=== PATIENT | male | born 2005 | race Caucasian/White ===

== ENCOUNTER → 2023-04-27 13:13 | Outpatient (CLI) | payer OTHER, SELFPAY ==
--- NOTE | 2023-04-27 13:35 | DI.MRI.S_ITS ---
PROCEDURE: MR ORBITS FACE NECK WO/W CON INDICATIONS: Sarcoma TECHNIQUE: Sagittal/axial/coronal T1 spin echo and STIR. After the administration of contrast, axial/coronal/sagittal T1 fast spin echo with fat saturation through the neck. COMPARISON: Outside Facility, RG, CT NECK WITH CONTRAST, 10/28/2022, 14:28. FINDINGS: Image quality: Excellent. Lymph nodes: No enlarged nodes are seen throughout the neck. Vessels: Visualized vasculature appears normal, with normal flow voids and enhancement. Neck spaces: The oropharynx, nasopharynx and pharynx are unremarkable, without mucosal lesions seen. Vocal cords, false vocal cords, pyriform sinuses, epiglottis, vallecula, and tongue base all appear normal. Extramucosal spaces of the neck also appear unremarkable. Under the right-sided skin marker, there is mild linear enhancing granulation tissue without suspicious component Glands: The parotid and submandibular glands appear normal. Thyroid gland unremarkable. Miscellaneous: Visualized brain and orbits appear normal. Lung apices appear clear. Superficial soft tissues appear normal. Visualized sinuses and mastoids appear clear. Bones: Marrow has normal overall signal. IMPRESSION: Mild subcutaneous enhancing scar granulation tissue without MR evidence recurrence or residual disease Approved by: Jacob Andrade M.D. on 04/27/2023 at 17:20
== END ==
PROVIDERS: PCP Family Medicine; Referring Provider Otolaryngology Pediatric Otolaryngology; Visit Provider Otolaryngology Pediatric Otolaryngology
DX: C49.9 Malignant neoplasm of connective and soft tissue, unspecified (principal)
CPT/HCPCS: 70543; A9579

== ENCOUNTER 2023-08-31 01:41 | Emergency (ER) | payer SELFPAY ==
[2023-08-31 01:49] VITALS: BP 118/78; PULSE 95; RESP 18; TEMP 36.8; O2SAT 97; BMI 20.6
--- NOTE | 2023-08-31 04:40 | ED.LOWEXIN ---
HPI - Extremity Injury (Lower) General Chief Complaint: Extremity Injury, Lower Stated Complaint: infection rt foot big toe Time Seen by Provider: 08/31/23 04:36 Source: patient Mode of arrival: Ambulatory History of Present Illness HPI Narrative: Patient is a 17-year-old male with noncontributory past medical history presenting today with right toe pain and swelling. It has been ongoing for the last few days. Unknown injury. [place] not take his shoes off very often in his having 1 spot of increasing pain. Denies fever or chills. Related Data Previous Rx's Medication Instructions Recorded hydrocodone 5 mg-acetaminophen 325 1 tab PO BID PRN pain #30 tabs 09/17/22 mg tablet meloxicam 15 mg tablet 15 mg PO DAILY #30 tabs 09/17/22 clonazepam 1 mg tablet 1 mg PO DAILY PRN anxiety #30 tabs 01/21/23 escitalopram oxalate 10 mg tablet 10 mg PO DAILY #90 tabs 01/21/23 (Lexapro) Review of Systems Review of Systems ROS Unobtainable: All systems reviewed & are unremarkable except as noted in HPI and below Patient History Medical History Insomnia Chronic anxiety Sarcoma of face Social History Smoking Status: Current every day smoker Smoking Status: Current every day smoker Substance Use Type: methamphetamine Exam Initial Vital Signs Initial Vital Signs: Vital Signs Temperature 98.2 F 08/31/23 01:49 Pulse Rate 95 H 08/31/23 01:49 Respiratory Rate 18 08/31/23 01:49 Blood Pressure 118/78 08/31/23 01:49 Pulse Oximetry 97 08/31/23 01:49 Oxygen Delivery Method Room Air 08/31/23 01:49 GENERAL: Well-appearing, well-nourished and in no acute distress. CARDIOVASCULAR: peripheral pulses in tact, cap refill <2 sec RESPIRATORY: No respiratory distress, speaks in full sentences without difficulty EXTREMITIES: Normal range of motion, no clubbing or edema. Neurovascularly intact NEUROLOGICAL: Cranial nerves II through XII grossly intact. Normal gait and speech. SKIN: Right big toe 0.25 cm x 0.25 cm swelling tenderness non erythematous Procedures Abscess I/D I&D #1: Site: foot (Big toe) Side (if applicable): right Local Anesthetic: lidocaine 1% Amount of anesthesia used (mL): 2 Technique: incised with #11 blade Amount of fluid expressed (mL): 1 Irrigation: No Course Vital Signs Vital signs: Vital Signs - 8 hr 08/31/23 01:49 Temperature 98.2 F Pulse Rate 95 H Respiratory Rate 18 Blood Pressure 118/78 Pulse Oximetry 97 Oxygen Delivery Method Room Air MDM - Extremity Injury (Lower) MDM Narrative Medical decision making narrative: Patient presents with right big toe pain progressively getting worse over the last few days. The area is very small but very hard and tender to touch. Possible foreign body versus a planter's wart. However it is extremely tender to touch. Successful I and D with gross drainage. Patient feels better. At this time area is so small and no need for antibiotics Discharge Plan Departure Patient Disposition: Home Clinical Impression: Cutaneous abscess of right foot Instructions: DI for Skin Abscess Activity Restrictions/Additional Instructions: *You have been diagnosed with skin abscess *What to do: Keep clean and dry as best you can use soap and water. May apply antibiotic ointment 1-2 times daily if needed *Continue to take medications as directed *Follow up with your primary care provider in 2-3 days or call [phone] *Return to ER if you should have increasing redness swelling pain or any new, worsening or concerning symptoms Prescriptions: No Action hydrocodone-acetaminophen 5-325 mg tablet 1 tab PO BID PRN (Reason: pain) Qty: 30 0RF meloxicam 15 mg tablet 15 mg PO DAILY Qty: 30 1RF escitalopram oxalate [Lexapro] 10 mg tablet 10 mg PO DAILY Qty: 90 1RF clonazepam 1 mg tablet 1 mg PO DAILY PRN (Reason: anxiety) Qty: 30 2RF Referrals: Juanito Aguillon DO [Primary Care Provider] - Stand Alone Forms: Patient Portal/API
[2023-08-31 05:22] VITALS: BP 133/76; PULSE 89; RESP 18; TEMP 36.6; O2SAT 98
== END 2023-08-31 05:31 | disposition home or self-care (01) ==
PROVIDERS: Emergency Provider Emergency Medicine; PCP Family Medicine
DX: L02.611 Cutaneous abscess of right foot (principal)
CPT/HCPCS: 10060; 99281; 99283

== ENCOUNTER 2023-11-27 15:34 | Emergency (ER) | payer SELFPAY ==
[2023-11-27 15:52] VITALS: BP 148/80; PULSE 130; RESP 26; TEMP 37.1; O2SAT 100; BMI 21.7
--- NOTE | 2023-11-27 16:04 | ED.GENADULT ---
HPI - General Adult General Chief complaint: Upper Respiratory Symptoms Stated complaint: sinus infection Time Seen by Provider: 11/27/23 15:57 Source: patient Mode of arrival: Ambulatory Limitations: no limitations History of Present Illness HPI narrative: Patient is a 17-year-old male who is here for what he states is a sinus infection. He states that last evening he started to get discomfort around his right eye. He has having a runny nose. He states he is having quite a bit of mucus. Also having dental pain. Has not tried anything for his symptoms. Does admit to using meth yesterday. Is having a headache as well. Related Data Previous Rx's Medication Instructions Recorded hydrocodone 5 mg-acetaminophen 325 1 tab PO BID PRN pain #30 tabs 09/17/22 mg tablet meloxicam 15 mg tablet 15 mg PO DAILY #30 tabs 09/17/22 clonazepam 1 mg tablet 1 mg PO DAILY PRN anxiety #30 tabs 01/21/23 escitalopram oxalate 10 mg tablet 10 mg PO DAILY #90 tabs 01/21/23 (Lexapro) Allergies Allergy/AdvReac Type Severity Reaction Status Date / Time No Known Drug Allergies Allergy Verified 11/27/23 15:51 Review of Systems Constitutional Constitutional: Reports system reviewed and no additional complaints, except as documented ENT Ears, Nose, Mouth, and Throat: Reports system reviewed and no additional complaints, except as documented Respiratory Respiratory: Reports system reviewed and no additional complaints, except as documented Integumentary/Breasts Skin/Breast: Reports system reviewed and no additional complaints, except as documented Patient History Medical History Insomnia Chronic anxiety Sarcoma of face Social History Smoking Status: Current every day smoker Smoking Status: Current every day smoker Substance Use Type: methamphetamine Exam Initial Vital Signs Initial Vital Signs: Vital Signs Temperature 98.7 F 11/27/23 15:52 Pulse Rate 130 H 11/27/23 15:52 Respiratory Rate 26 H 11/27/23 15:52 Blood Pressure 148/80 H 11/27/23 15:52 Pulse Oximetry 100 11/27/23 15:52 Oxygen Delivery Method Room Air 11/27/23 15:52 Const General: No ill appearing HENMT Nose: nasal discharge Face and sinus: sinuses nontender, no crepitus, no ecchymosis, no erythema and no edema Resp Effort & Inspection: normal respiratory effort Auscultation: clear to auscultation bilaterally Cardio Rate: tachycardic Rhythm: regular rhythm Skin General: no rashes or lesions noted Neuro General: patient alert and patient awake Course Orders Ordered: ED Orders 11/27/23 16:11 Respiratory Panel (Film Array) Stat Discontinued Medications Prednisone (Prednisone 20 Mg Tablet) 20 mg PO NOW ONE Stop: 11/27/23 16:04 Last Admin: 11/27/23 16:09 Dose: 20 mg Documented By: SPRING Vital Signs Vital signs: Vital Signs - 8 hr 11/27/23 15:52 Temperature 98.7 F Pulse Rate 130 H Respiratory Rate 26 H Blood Pressure 148/80 H Pulse Oximetry 100 Oxygen Delivery Method Room Air Medical Decision Making Lab Data Labs: Lab Results 11/27/23 Range/Units 16:11 Chlamy pneumoniae PCR Not detected (Not Detect) Adenovirus (PCR) Not detected (Not Detect) B.parapertussis DNA PCR Not detected (Not Detecte) Coronavirus OC43 (PCR) Not detected (Not Detect) Coronavirus HKU1 (PCR) Not detected (Not Detect) Coronavirus 229E (PCR) Not detected (Not Detect) SARS-CoV-2 (PCR) Detected H (Not Detecte) Coronavirus NL63 (PCR) Not detected (Not Detect) Human Metapneumovir PCR Not detected (Not Detect) Influenza Type A (PCR) Not detected (Not Detect) Influenza Type B (PCR) Not detected (Not Detect) M. pneumoniae (PCR) Not detected (Not Detect) Parainfluenza 1 (PCR) Not detected (Not Detect) Parainfluenza 2 (PCR) Not detected (Not Detect) Parainfluenza 3 (PCR) Not detected (Not Detect) Parainfluenza 4 (PCR) Not detected (Not Detect) RSV (PCR) Not detected (Not Detect) Entero/Rhino (PCR) Not detected (Not Detect) MDM Narrative Medical decision making narrative: Patient is COVID positive. I suspect that he has having some discomfort because of his sinus congestion. There was no indication for antibiotics. Not hypoxic. He is tachycardic however not dehydrated. No indication for admission to the hospital today. He was informed that he was COVID positive. Recommended that he take Tylenol/ibuprofen potentially some decongestants for his symptoms. He expressed understanding and agreement. Discharge Plan Departure Patient Disposition: Home Clinical Impression: COVID-19 Instructions: COVID-19 Activity Restrictions/Additional Instructions: Your positive for COVID today. Please follow all current CDC guidelines with regard to quarantine. These can be found at the CDC website. You can take Tylenol/ibuprofen for discomfort. You can also try [id number] decongestants. Contact your primary provider for follow-up. Prescriptions: No Action hydrocodone-acetaminophen 5-325 mg tablet 1 tab PO BID PRN (Reason: pain) Qty: 30 0RF meloxicam 15 mg tablet 15 mg PO DAILY Qty: 30 1RF escitalopram oxalate [Lexapro] 10 mg tablet 10 mg PO DAILY Qty: 90 1RF clonazepam 1 mg tablet 1 mg PO DAILY PRN (Reason: anxiety) Qty: 30 2RF Referrals: Juanito Aguillon DO [Primary Care Provider] - Stand Alone Forms: Patient Portal/API
[2023-11-27] MEDS: predniSONE 20 MG TABLET PO (16:09)
[2023-11-27 16:31] VITALS: BP 128/69
[2023-11-27 16:33] VITALS: PULSE 104; RESP 17; O2SAT 98
[2023-11-27 17:00] VITALS: BP 154/71; PULSE 102; RESP 16; O2SAT 96
[2023-11-27 17:30] VITALS: BP 141/68; PULSE 94; RESP 21; O2SAT 95
[2023-11-27 17:54] LABS: Adenovirus Not Detected (Not Detect); B. parapertussis Not Detected (Not Detecte); Bordetella pertussis Not Detected (Not Detect); Chlamydophila pneumoniae Not Detected (Not Detect); Coronavirus 229E Not Detected (Not Detect); Coronavirus HKU1 Not Detected (Not Detect); Coronavirus NL 63 Not Detected (Not Detect); Coronavirus OC43 Not Detected (Not Detect); Human Metapneumovirus Not Detected (Not Detect); Human Rhinovirus/Enterovirus Not Detected (Not Detect); Influenza A Not Detected (Not Detect); Influenza B Not Detected (Not Detect); Mycoplasma pneumoniae Not Detected (Not Detect); Parainfluenza Virus 1 Not Detected (Not Detect); Parainfluenza Virus 2 Not Detected (Not Detect); Parainfluenza Virus 3 Not Detected (Not Detect); Parainfluenza Virus 4 Not Detected (Not Detect); Respiratory Syncytial Virus Not Detected (Not Detect); SARS- CoV-2 Detected (Not Detecte)
[2023-11-27 18:00] VITALS: BP 145/66; PULSE 100; RESP 20; O2SAT 94
== END 2023-11-27 18:18 | disposition home or self-care (01) ==
PROVIDERS: Emergency Provider Emergency Medicine; PCP Family Medicine
DX: U07.1 COVID-19 (principal)
CPT/HCPCS: 87633; 99283

== ENCOUNTER 2024-01-02 19:47 | Emergency (ER) | payer SELFPAY ==
[2024-01-02 19:52] VITALS: BP 113/62; PULSE 128; RESP 20; TEMP 36.8; O2SAT 100; BMI 19.0
--- NOTE | 2024-01-02 20:15 | ED.GENADULT ---
HPI - General Adult General Chief complaint: Upper Respiratory Symptoms Stated complaint: sinus pain Time Seen by Provider: 01/02/24 20:05 Source: patient Mode of arrival: Ambulatory History of Present Illness HPI narrative: Patient is here for evaluation of left-sided maxillary sinus pain. It has been present for the past 2 weeks. He states the symptoms started after he was diagnosed with COVID. The symptoms that he had while he had COVID have resolved but he states he continues to have discomfort localized specifically to the left maxillary area. It does hurt to touch this area. It hurts when he bends over. He states that he does have purulent material coming from his left nostril when he blows his nose. Denies any fevers. He does have history of drug abuse. Has snorted cocaine in the past but states he does not do that anymore. He does sometimes snort methamphetamine but noted that he mostly uses his right nostril for this. Related Data Previous Rx's Medication Instructions Recorded hydrocodone 5 mg-acetaminophen 325 1 tab PO BID PRN pain #30 tabs 09/17/22 mg tablet meloxicam 15 mg tablet 15 mg PO DAILY #30 tabs 09/17/22 clonazepam 1 mg tablet 1 mg PO DAILY PRN anxiety #30 tabs 01/21/23 escitalopram oxalate 10 mg tablet 10 mg PO DAILY #90 tabs 01/21/23 (Lexapro) amoxicillin 875 mg-potassium 1 tab PO BID 5 days #10 tabs 01/02/24 clavulanate 125 mg tablet Allergies Allergy/AdvReac Type Severity Reaction Status Date / Time No Known Drug Allergies Allergy Verified 11/27/23 15:51 Review of Systems Constitutional Constitutional: Reports system reviewed and no additional complaints, except as documented ENT Ears, Nose, Mouth, and Throat: Reports system reviewed and no additional complaints, except as documented Respiratory Respiratory: Reports system reviewed and no additional complaints, except as documented Patient History Medical History Insomnia Chronic anxiety Sarcoma of face Social History Smoking Status: Current every day smoker Smoking Status: Current every day smoker alcohol intake frequency: other Substance Use Type: methamphetamine Exam Initial Vital Signs Initial Vital Signs: Vital Signs Temperature 98.2 F 01/02/24 19:52 Pulse Rate 128 H 01/02/24 19:52 Respiratory Rate 20 01/02/24 19:52 Blood Pressure 113/62 01/02/24 19:52 Pulse Oximetry 100 01/02/24 19:52 Oxygen Delivery Method Room Air 01/02/24 19:52 [facility] Head: normal to inspection and normocephalic Ears: TM's normal bilaterally Nose: septum normal, No epistaxis, No foreign body in naris and nasal discharge Face and sinus: no erythema, sinus tenderness maxillary (Left) and tenderness on the left maxilla Mouth: oral mucosae normal and moist mucous membranes Skin General: no rashes or lesions noted Course Orders Ordered: Discontinued Medications Amoxicillin/Clavulanate Potassium (Amoxicillin/Clav 875/125 Mg) 1 tab PO NOW ONE Stop: 01/02/24 20:16 Last Admin: 01/02/24 20:19 Dose: 1 tab Documented By: HARRIS Vital Signs Vital signs: Vital Signs - 8 hr 01/02/24 19:52 Temperature 98.2 F Pulse Rate 128 H Respiratory Rate 20 Blood Pressure 113/62 Pulse Oximetry 100 Oxygen Delivery Method Room Air Medical Decision Making [facility] Narrative Medical decision making narrative: Patient does have what appears to be purulent material from his left nostril. Has tenderness over the left maxillary sinus. Has discomfort with bending over over the left maxillary sinus. Given all of this his symptoms are consistent with a bacterial sinusitis. Will treat with antibiotics. He was advised to discontinue snorting the methamphetamine. We also discussed other things he could try at home to include decongestants and also saline nasal sprays. He was given return precautions. He expressed understanding and agreement. Discharge Plan Departure Patient Disposition: Home Clinical Impression: Acute bacterial sinusitis Activity Restrictions/Additional Instructions: A prescription for antibiotics was sent to [facility] in [place] per your request. Please take it as directed. I also recommend that you continue with the conservative measures such as saline nasal sprays and also decongestant such as Claritin or Zyrtec. You can purchase these [id number]. Return to the emergency department for new symptoms. Prescriptions: New amoxicillin-pot clavulanate 875-125 mg tablet 1 tab PO BID 5 Days Qty: 10 0RF No Action hydrocodone-acetaminophen 5-325 mg tablet 1 tab PO BID PRN (Reason: pain) Qty: 30 0RF meloxicam 15 mg tablet 15 mg PO DAILY Qty: 30 1RF escitalopram oxalate [Lexapro] 10 mg tablet 10 mg PO DAILY Qty: 90 1RF clonazepam 1 mg tablet 1 mg PO DAILY PRN (Reason: anxiety) Qty: 30 2RF Referrals: Juanito Aguillon DO [Primary Care Provider] - Stand Alone Forms: Patient Portal/API
[2024-01-02] MEDS: AMOXICILLIN/CLAV 875/125 MG 1 TAB PO (20:19)
== END 2024-01-02 20:26 | disposition home or self-care (01) ==
PROVIDERS: Emergency Provider Emergency Medicine; PCP Family Medicine
DX: J01.80 Other acute sinusitis (principal); Z86.16 Personal history of COVID-19
CPT/HCPCS: 99283

== ENCOUNTER 2024-01-08 08:25 | Emergency (ER) | payer SELFPAY ==
[2024-01-08 08:41] VITALS: BP 126/70; PULSE 88; RESP 18; TEMP 36.8; O2SAT 98; BMI 21.7
--- NOTE | 2024-01-08 09:08 | PC.NURSE ---
Attempted to bring pt into ED,unable to locate him in lobby
--- NOTE | 2024-01-08 09:14 | PC.NURSE ---
Attempted to bring pt into ED,unable to locate pt in lobby
[2024-01-08 10:03] LABS: Add Manual Diff / Slide Review NO; Basophils Absolute Auto 100 /uL (0-100); Basophils Percent Auto 0.7 % (0-2); Eosinophils Absolute Auto 200 /uL (0-450); Eosinophils Percent Auto 1.6 % (2-4); Hematocrit 40.2 % (41-53); Hemoglobin 13.1 g/dL (13.5-17.5); Lymphocytes Absolute Auto 1700 /uL (1100-4500); Lymphocytes Percent Auto 13.9 % (25-40); Mean Corpuscular HGB Conc 32.5 % (30-36); Mean Corpuscular Hemoglobin 27.9 PG (26-34); Mean Corpuscular Volume 85.9 fL (80-100); Monocytes Absolute Auto 1000 /uL (0-900); Monocytes Percent Auto 8.4 % (3-14); Neutrophils Absolute Auto 9400 /uL (1500-7000); Neutrophils Percent Auto 75.4 % (50-75); Platelet Count 283 X10^3/uL (150-400); Red Blood Cell Count 4.69 X10^6/uL (4.5-5.9); Red Cell Distribution Width 15.9 % (11.6-14.8); White Blood Cell Count 12.4 X10^3/uL (4.5-11.0)
[2024-01-08 10:14] LABS: Acetaminophen < 10 ug/mL (10-30); Alanine Aminotransferase 25 IU/L (<50); Albumin 4.1 g/dL (3.5-5.0); Albumin Globulin Ratio 1.1 (1.0-2.8); Alkaline Phosphatase 99 U/L (38-126); Aspartate Aminotransferase 24 IU/L (17-59); BUN Creatinine Ratio 17.8 (6-22); Bilirubin Total 0.6 mg/dL (0.2-1.3); Blood Urea Nitrogen 13 mg/dL (9-20); Calcium 9.1 mg/dL (8.4-10.2); Carbon Dioxide 30 mmol/L (22-32); Chloride 104 mmol/L (98-107); Estimated Glomerular Filt Rate > 60 mL/min (>60); Ethanol (ETOH) < 10 mg/dL; Globulin 3.6 g/dL (1.7-4.1); Glucose 62 mg/dL (70-100); HEMOLYSIS 15 (0-50); Potassium 4.1 mmol/L (3.4-5.1); Salicylate < 1.0 mg/dL (<20); Sodium 142 mmol/L (137-145); Total Protein 7.7 g/dL (6.3-8.2)
--- NOTE | 2024-01-08 10:15 | DI.CT.S_ITS ---
PROCEDURE: CT FACIAL BONES WO CON INDICATIONS: Left side pain/injury TECHNIQUE: Noncontrast 2.5 mm thick axial images acquired from the mandible through the frontal sinuses, with coronal and sagittal reformatting. For radiation dose reduction, the following was used: automated exposure control, adjustment of mA and/or kV according to patient size. COMPARISON: None. FINDINGS: Image quality: Excellent. Bones and teeth: No acute fracture can be seen. No orbital blowout fracture is seen. There is medial bowing of the left maxillary sinus, with thinning of the medial wall of the right maxillary sinus, with demineralization. Orbital melton are intact. Nasal bones and septum are intact. Chronic mild leftward nasal septal deviation can be seen. Visualized portions of the mandible demonstrate no fractures or subluxation. Zygomatic arches are intact. Pterygoid plates are intact. Visualized portions of the skull base and auditory canals are intact. Sinuses: Significant left-sided paranasal sinus opacification can be seen, with high density material filling the left maxillary sinus. There is also moderate to prominent left-sided ethmoid air cell mucosal thickening. There is demineralization of several of the left ethmoid air cell septations. There is complete opacification of the left frontal sinus. Mild mucosal thickening can be seen within the anterior left sphenoid sinus. On the right, there is mild mucosal thickening within the anterior ethmoid air cells and within the inferior medial right frontal sinus. Soft tissues: No edema, masses, or fluid collections. No enlarged lymph nodes. No soft tissue lacerations or debris. Vascular: Visualized vascular structures appear normal in the absence of contrast. Bony vascular foramina and canals are intact. IMPRESSION: No displaced acute fracture can be seen. There is complete opacification of the left maxillary sinus seen, with high-density material within it, which may be related to blood, given the history. However, this also has the appearance of chronic sinus disease affecting the left maxillary sinus, with thinning and medial bowing of the medial wall of the left maxillary sinus. Areas of bony demineralization are seen, which are consistent with chronic sinusitis. Moderate paranasal sinus disease can be seen elsewhere on the left. Mild mucosal thickening can be seen on the right. Dictated by: Monty Weston M.D. on 01/08/2024 at 10:11 Approved by: Monty Weston M.D. on 01/08/2024 at 10:16
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
[2024-01-08 10:44] LABS: Free T4, Direct Thyroxine 1.38 ng/dL (0.78-2.19)
--- NOTE | 2024-01-08 10:55 | PC.NURSE ---
Pt given food tray
[2024-01-08 10:58] LABS: Thyroid Stimulating Hormone 1.28 uIU/mL (0.47-4.68)
[2024-01-08 12:03] LABS: Appearance Urine UA CLEAR; Bilirubin Urine UA NEGATIVE (NEGATIVE); Color Urine UA YELLOW; Glucose Urine UA NEGATIVE (Negative); Ketones Urine UA TRACE (NEGATIVE); Leukocyte Esterase Urine UA NEGATIVE (NEGATIVE); Nitrite Urine UA NEGATIVE (Negative); Occult Blood Urine UA NEGATIVE (Negative); Protein Urine UA NEGATIVE (Negative); Specific Gravity Urine UA 1.025 (1.000-1.035); Urobilinogen Urine UA 0.2 E.U./dL (0.2); pH Urine UA 5.5 (4.5-8.0)
[2024-01-08 12:04] LABS: Urine Volume 10mL (spun)
[2024-01-08 12:04] LABS: Ur Creatinine Normal (Normal); Ur Specific Gravity Normal (Normal); Urine pH Normal (Normal)
[2024-01-08 12:06] LABS: UR Morphine/Opiate cutoff 300 Negative (Negative); Urine Amphetamines Positive (Negative); Urine Barbiturates Negative (Negative); Urine Benzodiazepines Negative (Negative); Urine Cocaine Negative (Negative); Urine MDMA Negative (Negative); Urine Methadone Negative (Negative); Urine Methamphetamines Positive (Negative); Urine Oxycodone Negative (Negative); Urine Phencyclidine Negative (Negative); Urine Tetrahydrocannabinol Negative (Negative); Urine Tricyclic Antidepressant Negative (Negative)
[2024-01-08 12:07] LABS: Bacteria Urine None Seen; Culture Indicated Urine Cult Not Indicated; RBC Urine None Seen (0-5/HPF); Squamous Epithelial Cell Urine None Seen (0-5/HPF); WBC Urine None Seen (0-5/HPF)
[2024-01-08 12:24] LABS: COVID19 -Nasal RAPID Negative (Negative)
[2024-01-08 12:40] VITALS: BP 117/58; PULSE 104; O2SAT 98
--- NOTE | 2024-01-08 12:51 | CM.SWNOTE ---
Addendum entered by Salvador Baugh CNA 01/08/24 12:53: ED CAD DESIGNER DRAFTER Assessment Note CAD DESIGNER DRAFTER met with 18 y.o. male patient presenting to ED with concerns of auditory hallucinations, substance use concerns, and homelessness. Upon entering the room CAD DESIGNER DRAFTER noted the pt calmly sitting in bed and appeared alert and oriented x4. Pt has a history of schizophrenia and undiagnosed bipolar disorder. Pt disclosed he last used substances 5 days ago. CAD DESIGNER DRAFTER discussed the possibility of a senior care. Pt would prefer his own space and doesn't want to sleep in a gymnasium with a bunch of mats around.. I'd rather sleep on the streets. Pt acknowledged homelessness as his primary concern and stated he slept by the [employer] across the street last night. Pt previously saw a therapist in [place] but not has seen one recently. Pt acknowledged therapy as beneficial and would like resources. Pt mentioned history of ADHD and concern for autism. Pt has been in and out of the hospital the past few days and reports not using any substance other than nicotine in the past 4 to 5 days. Pt does not want treatment. Pt has hx of treatment and detox at [facility]. Pt stated his first visit to [facility] was good but that they were aggressive last time I was there so I left. Pt was supposed to attend [address] [place] [address] in [place] as a teenager but did not end up attending. Pt would like to find employment. Pt uses public transportation and rides from friends to get around. Pt states he ahs family across [facility] but cannot stay with them unless he goes to treatment. Pt has attempted to get a hold of [facility]. Pt endorses auditory hallucinations. These hallucinations tell him to go to the hospital and to break into cars. Pt denies visual hallucinations. Pt denies SI at the moment but acknowledges a history. Pt denies HI but states that the voices are people that he knows and it gets irritating when coming down off of dope. Pt does not currently have insurance. CAD DESIGNER DRAFTER provided Pt with housing and senior care resources as well as [address] [place] bus passes. CAD DESIGNER DRAFTER discussed food stamps to which the Pt confirmed he has been to [facility] and seen someone about. CAD DESIGNER DRAFTER provided Pt with information on local [facility] office for food and health insurance needs. [facility] resources were provided to Pt along with food bank information. [facility] was called on Pt's behalf and they will reach out to him directly with additional information and the possibility of a hotel voucher for the night. It is the opinion of this CAD DESIGNER DRAFTER that Pt is safe to discharge to the community upon medical clearance. This CAD DESIGNER DRAFTER reviews the above with ED provider Dr. Garcia who indicates agreement and understanding. Plan: Pt to discharge to community upon medical clearance w/ bus passes and reosruces rppvided. MATEO Cagle, [facility] Original Note: ED CAD DESIGNER DRAFTER Assessment Note
== END 2024-01-08 12:40 | disposition home or self-care (01) ==
PROVIDERS: Emergency Provider Emergency Medicine; PCP Family Medicine
DX: R44.0 Auditory hallucinations (principal); J32.0 Chronic maxillary sinusitis; F15.10 Other stimulant abuse, uncomplicated; R51.9 Headache, unspecified; Z20.822 Contact with and (suspected) exposure to COVID-19
CPT/HCPCS: 36415; 70486; 80053; 80305; 80320; 80329; 81001; 84439; 84443; 85025; 87635; 99283; 99284; G0480

== ENCOUNTER 2024-01-13 20:53 | Emergency (ER) | payer SELFPAY ==
[2024-01-13 21:00] VITALS: BP 126/60; PULSE 103; RESP 18; TEMP 36.6; O2SAT 100; BMI 21.7
--- NOTE | 2024-01-13 21:18 | DI.RAD.S_ITS ---
PROCEDURE: XR ANKLE LT MIN 3V INDICATIONS: pain/swelling TECHNIQUE: 3 views of the ankle were acquired. COMPARISON: None. FINDINGS: Bones: No fractures or dislocations. Ankle mortise is normally aligned. No suspicious bony lesions. No osseous erosions or periosteal reaction. Soft tissues: No tibiotalar joint effusion. Achilles tendon appears normal. Mild soft tissue swelling of the left ankle and left foot. IMPRESSION: Mild soft tissue swelling of the ankle and foot without underlying osseous abnormalities. If there are persistent symptoms or clinical suspicion for pathology, then repeat radiographs or advanced imaging (CT or MRI) may be considered for further evaluation. Dictated by: Garrett Mooney M.D. on 01/13/2024 at 22:11 Approved by: Garrett Mooney M.D. on 01/13/2024 at 22:12
--- NOTE | 2024-01-13 22:04 | ED.SKABFB ---
HPI - Skin/Abscess/Foreign Bdy General Chief complaint: Skin/Abscess/Foreign Body Stated complaint: lt foot pain, possible infection Time Seen by Provider: 01/13/24 21:00 Source: patient Mode of arrival: Wheelchair Limitations: no limitations History of Present Illness HPI narrative: 18-year-old male with history schizophrenia presents for evaluation of left ankle pain and swelling. Patient denies injury, states that he walks ?a lot? every day. States that he noticed swelling 1-2 days ago and has gotten worse since onset. No medications taken prior to arrival. Related Data Previous Rx's Medication Instructions Recorded hydrocodone 5 mg-acetaminophen 325 1 tab PO BID PRN pain #30 tabs 09/17/22 mg tablet meloxicam 15 mg tablet 15 mg PO DAILY #30 tabs 09/17/22 clonazepam 1 mg tablet 1 mg PO DAILY PRN anxiety #30 tabs 01/21/23 escitalopram oxalate 10 mg tablet 10 mg PO DAILY #90 tabs 01/21/23 (Lexapro) doxycycline hyclate 100 mg capsule 100 mg PO BID #14 caps 01/13/24 Allergies Allergy/AdvReac Type Severity Reaction Status Date / Time No Known Drug Allergies Allergy Verified 11/27/23 15:51 Review of Systems Review of Systems Narrative: Negative except as noted above Patient History Medical History Insomnia Chronic anxiety Sarcoma of face Social History Smoking Status: Current every day smoker Smoking Status: Current every day smoker tobacco type: vaping alcohol intake frequency: holidays/special occasions only Substance Use Type: methamphetamine Exam Initial Vital Signs Initial Vital Signs: Vital Signs Temperature 97.8 F 01/13/24 21:00 Pulse Rate 103 H 01/13/24 21:00 Respiratory Rate 18 01/13/24 21:00 Blood Pressure 126/60 01/13/24 21:00 Pulse Oximetry 100 01/13/24 21:00 Oxygen Delivery Method Room Air 01/13/24 21:00 Const: Awake, alert, no acute distress Cardiac: regular rate, regular rhythm RESP: unlabored, clear bilaterally, no wheezing MSK: Left ankle swollen on lateral aspect, no deformity, scab noted above ankle with surrounding erythema, no fluctuance Skin: Warm, Dry, scab noted above lateral aspect of left ankle with mild surrounding erythema Neuro: AO x3, CN II-XII grossly intact, moves all extremities Course Orders Ordered: ED Orders 01/13/24 21:18 XR ankle LT min 3V Stat Discontinued Medications Doxycycline Hyclate (Doxycycline Hyclate 100 Mg Tablet) 100 mg PO NOW ONE Stop: 01/13/24 22:06 Last Admin: 01/13/24 22:16 Dose: 100 mg Documented By: OW Vital Signs Vital signs: Vital Signs - 8 hr 01/13/24 21:00 01/13/24 22:20 Temperature 97.8 F Pulse Rate 103 H 96 H Respiratory Rate 18 18 Blood Pressure 126/60 128/67 Pulse Oximetry 100 100 Oxygen Delivery Method Room Air Room Air MDM - Skin/Abscess/Foreign Bdy Differential Diagnosis Differential diagnosis: Likely abscess of skin or subcutaneous tissue, viral exanthem and dermatophytosis MDM Narrative Medical decision making narrative: Nontoxic appearing patient with left ankle pain and swelling. Cellulitic changes noted surrounding a scab that patient has on his left lateral ankle. Patient is ambulatory without difficulty. We will treat for MRSA with doxycycline. Initial dose given in the emergency department and prescription sent to pharmacy of choice. Patient counseled to elevate his legs whenever possible and to follow up with primary care physician. ED return precautions discussed at bedside. Patient expressed understanding of the plan and is in agreement at this time. All questions answered at the time of discharge. Discharge Plan Departure Patient Disposition: Home Clinical Impression: Cellulitis of left leg Instructions: DI for Cellulitis -- Adult Prescriptions: New doxycycline hyclate 100 mg capsule 100 mg PO BID Qty: 14 0RF No Action hydrocodone-acetaminophen 5-325 mg tablet 1 tab PO BID PRN (Reason: pain) Qty: 30 0RF meloxicam 15 mg tablet 15 mg PO DAILY Qty: 30 1RF escitalopram oxalate [Lexapro] 10 mg tablet 10 mg PO DAILY Qty: 90 1RF clonazepam 1 mg tablet 1 mg PO DAILY PRN (Reason: anxiety) Qty: 30 2RF Referrals: Juanito Aguillon DO [Primary Care Provider] - Stand Alone Forms: Patient Portal/API
[2024-01-13] MEDS: DOXYCYCLINE HYCLATE 100 MG TABLET PO (22:16)
[2024-01-13 22:20] VITALS: BP 128/67; PULSE 96; RESP 18; O2SAT 100
== END 2024-01-13 22:37 | disposition home or self-care (01) ==
PROVIDERS: Emergency Provider Emergency Medicine; PCP Family Medicine
DX: L03.116 Cellulitis of left lower limb (principal)
CPT/HCPCS: 73610; 99283

== ENCOUNTER 2024-11-13 16:04 | Emergency (ER) | payer OTHER, SELFPAY ==
[2024-11-13 16:21] VITALS: BP 102/61; PULSE 83; RESP 16; TEMP 35.9; O2SAT 99; BMI 20.3
--- NOTE | 2024-11-13 19:04 | PC.NURSE ---
This RN attempts to bring patient back from waiting room. Pt is not found in waiting room. security rep made aware. Will attempt to call back again in a little bit.
== END 2024-11-13 19:41 | disposition left against medical advice (07) ==
PROVIDERS: Emergency Provider Emergency Medicine; PCP Family Medicine
DX: E86.0 Dehydration (principal)
CPT/HCPCS: 99281

== ENCOUNTER 2024-12-11 15:01 | Emergency (ER) | payer OTHER, SELFPAY ==
[2024-12-11] VITALS (8 sets, daily range): BP systolic 102–127; BP diastolic 55–62; PULSE 76–112; RESP 16; TEMP 36.6; O2SAT 97–100; BMI 26.1
--- NOTE | 2024-12-11 15:44 | PC.NURSE ---
This RN contacts patient's Aunt, Isidra Morris, at patient request. Connection is poor so unable to have complete conversation. Patient made aware and would like to speak with director of social services. MATEO Veras made aware.
--- NOTE | 2024-12-11 16:06 | CM.SWNOTE ---
Addendum entered by Eda Robertson 12/11/24 17:24: Patient is unable to provide a urine sample for ED provider, per patient request to be tested for STIs and Hepatitis. Patient endorses preference to d/c. [employer] provides patient with [facility] where patient can get tested from [facility] de[facility] website. ARISTEO Weathers Addendum entered by Eda Robertson 12/11/24 16:56: Patient also reports hx of 10 drug overdoses in his life and requests narcan upon d/c. [employer] informs ED provider of this. ARISTEO Weathers Original Note: ED [employer] Assessment Note Patient is 18 y/o male who presents to ED via EMS after EMS was contacted twice due to concern for patient passing out at [facility]. Patient admits to recent Fentanyl use 30 minutes prior to arrival. In the ED patient presents endorsing concern for general work up. Per Raúl patient has hx of similar presentations at this ED and surrounding EDs. [employer] enters room to meet with patient, patient presents as A/Ox4. Patient presents as calm, polite and communicative. Patient endorses he wants to meet with [employer] to get a new phone through the state. Patient endorses he is homeless, has limited supports and has been struggling with mental illness and substance use. Patient states that last year he was in a state of psychosis and has been experiencing hallucinations unsure what is real of fake. Patient endorses he engages in substance use and spent his money on Fentanyl. Patient endorses hx of tobacco and Methamphetamine use as well. [employer] discusses [facility] inpatient options, patient endorses he is not interested in going to treatment at this time. Patient endorses hx of placement at [facility] in the last year. Patient denies SI and HI. Patient denies any recent hx of outpatient providers. [employer] offers patient with resources and provides patient with cold nursing home resources, housing, basic needs (including clothing and phone) resources and [facility] resources. [employer] offers bus passes and provides patient with 6 [employer] day passes. [employer] reviews this with ED provider, ED provider to evaluate patient. Patient to d/c to community upon medical clearance, patient to f/u with resources provided. ARISTEO Weathers
--- NOTE | 2024-12-11 17:06 | ED_ITS ---
HPI - Recheck/Abnormal Lab/Rx General Chief Complaint: Recheck/Abnormal Lab/Rx Stated Complaint: Smoked Fentanyl Time Seen by Provider: 12/11/24 16:47 Source: EMS Mode of arrival: EMS History of Present Illness HPI narrative: Patient 18-year-old male history of polysubstance abuse presenting today after being found passed out at [facility]. Admits to smoking fentanyl did not get Narcan. He has been monitored here for a couple of hours. He is homeless he is met with social work. He has a variety of complaints today. He is worried he might have hepatitis from a blow job. He has no drainage or discharge from his penis. Offered gonorrhea chlamydia testing here however he was unable to give a urine sample. He has no other complaints. Related Data Previous Rx's Medication Instructions Recorded hydrocodone 5 mg-acetaminophen 325 1 tab PO BID PRN pain #30 tabs 09/17/22 mg tablet meloxicam 15 mg tablet 15 mg PO DAILY #30 tabs 09/17/22 clonazepam 1 mg tablet 1 mg PO DAILY PRN anxiety #30 tabs 01/21/23 escitalopram oxalate 10 mg tablet 10 mg PO DAILY #90 tabs 01/21/23 (Lexapro) doxycycline hyclate 100 mg capsule 100 mg PO BID #14 caps 01/13/24 Allergies Allergy/AdvReac Type Severity Reaction Status Date / Time No Known Drug Allergies Allergy Verified 12/11/24 15:08 Patient History Medical History Insomnia Chronic anxiety Sarcoma of face Social History Smoking Status: Current every day smoker Smoking Status: Current every day smoker tobacco type: cigarettes and vaping alcohol intake frequency: holidays/special occasions only Exam Initial Vital Signs Initial Vital Signs: Vital Signs Pulse Rate 112 H 12/11/24 15:03 Blood Pressure 127/61 12/11/24 15:03 Pulse Oximetry 97 12/11/24 15:03 GENERAL: Disheveled 18-year-old male awake alert CARDIOVASCULAR: peripheral pulses in tact, cap refill <2 sec RESPIRATORY: No respiratory distress, speaks in full sentences without difficulty EXTREMITIES: Normal range of motion, no clubbing or edema. Neurovascularly intact NEUROLOGICAL: Cranial nerves II through XII grossly intact. Normal gait and speech. SKIN: Warm, dry, no petechiae, no rashes or lesions. Course Orders Ordered: Discontinued Medications Naloxone HCl (Naloxone 4 Mg Nasal [place]) 4 mg MISC DIRECTED ONE Stop: 12/11/24 17:28 Last Admin: 12/11/24 17:34 Dose: 4 mg Documented By: LIZBET Vital Signs Vital signs: Vital Signs - 8 hr 12/11/24 15:03 12/11/24 15:03 12/11/24 15:04 Temperature 97.8 F Pulse Rate 112 H 108 H Respiratory Rate 16 Blood Pressure 127/61 125/61 Pulse Oximetry 97 97 Oxygen Delivery Method Room Air 12/11/24 15:06 12/11/24 15:06 12/11/24 15:30 Temperature Pulse Rate 101 H Respiratory Rate Blood Pressure 125/61 102/55 L Pulse Oximetry 97 Oxygen Delivery Method 12/11/24 15:30 12/11/24 16:00 12/11/24 16:00 Temperature Pulse Rate 92 H 86 Respiratory Rate Blood Pressure 117/62 Pulse Oximetry 99 100 Oxygen Delivery Method 12/11/24 16:31 Temperature Pulse Rate 76 Respiratory Rate Blood Pressure Pulse Oximetry 98 Oxygen Delivery Method Room Air MDM - Recheck/Abnormal Lab/Rx MDM Narrative Medical decision making narrative: 18-year-old male history polysubstance abuse with fentanyl overdose today. Narcan was not given he would like some Narcan to go which is reasonable. He has concerns about STDs. We discussed need for further testing such as hepatitis HIV. He was given resources for [facility] STD testing. Attempted urine sample today but not successful. He was monitored here no recurrence overdose here. Social work met with him given other resources offered detox did not want detox today. Discharge Plan Departure Patient Disposition: Home Clinical Impression: Opioid overdose Instructions: DI for Drug Overdose in Adults, Naloxone for Opiate Overdose - WADOH Activity Restrictions/Additional Instructions: *You have been diagnosed with overdose *What to do: Please go to [facility] for further STD testing. You do need testing for hepatitis and HIV. *Continue to take medications as directed Narcan as needed please carry with you at all times *Follow up with your primary care provider in 2-3 days or call [phone] *Return to ER if you should have any new, worsening or concerning symptoms Prescriptions: No Action hydrocodone-acetaminophen 5-325 mg tablet 1 tab PO BID PRN (Reason: pain) Qty: 30 0RF meloxicam 15 mg tablet 15 mg PO DAILY Qty: 30 1RF escitalopram oxalate [Lexapro] 10 mg tablet 10 mg PO DAILY Qty: 90 1RF clonazepam 1 mg tablet 1 mg PO DAILY PRN (Reason: anxiety) Qty: 30 2RF doxycycline hyclate 100 mg capsule 100 mg PO BID Qty: 14 0RF Referrals: Juanito Aguillon DO [Primary Care Provider] - Stand Alone Forms: Patient Portal/API/Survey
--- NOTE | 2024-12-11 17:22 | PC.NURSE ---
Pt stands and ambulates to bathroom. Attempts to void, but reports he is unable. Provider made aware.
[2024-12-11] MEDS: NALOXONE 4 MG NASAL SPRAY MISC (17:34)
== END 2024-12-11 17:38 | disposition home or self-care (01) ==
PROVIDERS: Emergency Provider Emergency Medicine; PCP Family Medicine
DX: T40.411A Poisoning by fentanyl or fentanyl analogs, accidental (unintentional), initial encounter (principal); Z59.00 Homelessness unspecified
CPT/HCPCS: 99281; 99283; A9270

== ENCOUNTER 2024-12-22 10:17 | Emergency (ER) | payer OTHER, SELFPAY ==
[2024-12-22 10:25] VITALS: BP 131/60; PULSE 70; RESP 12; O2SAT 100; BMI 20.3
[2024-12-22 10:35] VITALS: TEMP 36.4
--- NOTE | 2024-12-22 10:35 | PC.NURSE ---
This SOLUTIONS SALES CONSULTANT assisted DIAZ Feliciano to remove all patient belongings and put them in a labeled patient belonging bags and place them under the sink outside of room 1. The patient had a red utility knife that this SOLUTIONS SALES CONSULTANT had security remove and hold at the security desk until patient discharge.
--- NOTE | 2024-12-22 10:36 | PC.NURSE ---
Addendum entered by Jodie Haile R.N. 12/22/24 10:36: When asked if he is open to a warming half-way I can't sleep in a shared room, I have trauma from that Original Note: Patient states I don't want to stop drugs but whatever it takes to get somewhere warm its too fucking cold outside
--- NOTE | 2024-12-22 11:42 | ED.HA ---
HPI - Headache General Chief Complaint: Headache Stated Complaint: vomitting Time Seen by Provider: 12/22/24 11:20 Mode of arrival: EMS History of Present Illness HPI Narrative: Patient 18-year-old male with known fentanyl use presenting today with headache and vomiting. He apparently was found passed out in a bathroom after fentanyl on meth use this morning. He states he vomited blood up twice. He has no abdominal pain. He was currently sleeping but easily arousable. He was seen and evaluated here 12/11/2024 after overdose in a [facility]. He is currently afebrile he is following commands. Sleeping under many covers. He does experience homelessness. Related Data Previous Rx's Medication Instructions Recorded hydrocodone 5 mg-acetaminophen 325 1 tab PO BID PRN pain #30 tabs 09/17/22 mg tablet meloxicam 15 mg tablet 15 mg PO DAILY #30 tabs 09/17/22 clonazepam 1 mg tablet 1 mg PO DAILY PRN anxiety #30 tabs 01/21/23 escitalopram oxalate 10 mg tablet 10 mg PO DAILY #90 tabs 01/21/23 (Lexapro) doxycycline hyclate 100 mg capsule 100 mg PO BID #14 caps 01/13/24 Allergies Allergy/AdvReac Type Severity Reaction Status Date / Time No Known Drug Allergies Allergy Verified 12/22/24 10:35 Patient History Medical History Insomnia Chronic anxiety Sarcoma of face Social History Smoking Status: Current every day smoker Smoking Status: Current every day smoker tobacco type: cigarettes and vaping alcohol intake frequency: holidays/special occasions only Exam Initial Vital Signs Initial Vital Signs: Vital Signs Pulse Rate 70 12/22/24 10:25 Respiratory Rate 12 12/22/24 10:25 Blood Pressure 131/60 12/22/24 10:25 Pulse Oximetry 100 12/22/24 10:25 Oxygen Delivery Method Room Air 12/22/24 10:25 GENERAL: Disheveled male sleeping easily arousable HEENT: Head atraumatic,EOMI, pupils reactive, face symmetric, moist mucous membranes CARDIOVASCULAR: Regular rate and rhythm without murmurs, rubs or gallops. RESPIRATORY: Breath sounds equal bilaterally, no wheezes rales or rhonchi. ABDOMEN: Soft, nontender. Normoactive bowel sounds all 4 quadrants. No guarding or rebound. EXTREMITIES: Normal range of motion, no clubbing or edema. Neurovascularly intact NEUROLOGICAL: Alert and oriented x4.Normal gait and speech. Cranial nerves II through XII grossly intact. SKIN: Warm, dry, no laceration, no petechiae, no rashes or lesions. Course Orders Ordered: ED Orders 12/22/24 10:34 Consult to [facility] - Business Analysis Analyst Stat 12/22/24 11:56 CBC Auto Diff [Complete Blood Count AUTO DIFF] Stat CMP [Comprehensive Metabolic Panel] Stat Discontinued Medications Naloxone HCl (Naloxone 4 Mg Nasal [place]) 4 mg MISC DIRECTED ONE Stop: 12/22/24 13:52 Last Admin: 12/22/24 13:59 Dose: 4 mg Documented By: LATOYA Ondansetron HCl (Ondansetron 4 Mg Odt) 4 mg SL NOW ONE Stop: 12/22/24 11:46 Last Admin: 12/22/24 12:00 Dose: 4 mg Documented By: SURAJ Vital Signs Vital signs: Vital Signs - 8 hr 12/22/24 10:25 12/22/24 10:35 12/22/24 14:01 Temperature 97.6 F 98.9 F Pulse Rate 70 86 Respiratory Rate 12 18 Blood Pressure 131/60 131/60 Pulse Oximetry 100 96 Oxygen Delivery Method Room Air Room Air MDM - Headache Lab Data 12/22/24 11:56 12/22/24 11:56 Labs: Lab Results 12/22/24 Range/Units 11:56 WBC 10.6 (4.5-11.0) X10^3/uL RBC 4.35 L (4.5-5.9) X10^6/uL Hgb 12.6 L (13.5-17.5) g/dL Hct 38.1 L (41-53) % MCV 87.6 (80-100) fL MCH 28.9 (26-34) PG MCHC 33.0 (30-36) % RDW 14.4 (11.6-14.8) % Plt Count 187 (150-400) X10^3/uL Neut % (Auto) 56.6 (50-75) % Lymph % (Auto) 33.4 (25-40) % Parker % (Auto) 9.0 (3-14) % Eos % (Auto) 0.6 L (2-4) % Baso % (Auto) 0.4 (0-2) % Neut # (Auto) 6000 (3923-0504) /uL Lymph # (Auto) 3500 (9248-3114) /uL Parker # (Auto) 900 (0-900) /uL Eos # (Auto) 100 (0-450) /uL Baso # (Auto) 0 (0-100) /uL Sodium 136 L (137-145) mmol/L Potassium 4.0 (3.4-5.1) mmol/L Chloride 102 (98-107) mmol/L Carbon Dioxide 26 (22-32) mmol/L BUN 16 (9-20) mg/dL Creatinine 0.65 L (0.66-1.25) mg/dL Estimated GFR > 60 (>60) mL/min BUN/Creatinine Ratio 24.6 H (6-22) Glucose 86 (70-100) mg/dL Calcium 9.3 (8.4-10.2) mg/dL Total Bilirubin 0.5 (0.2-1.3) mg/dL AST 38 (17-59) IU/L ALT 25 (<50) IU/L Alkaline Phosphatase 86 (38-126) U/L Total Protein 6.6 (6.3-8.2) g/dL Albumin 4.1 (3.5-5.0) g/dL Globulin 2.5 (1.7-4.1) g/dL Albumin/Globulin Ratio 1.6 (1.0-2.8) MDM Narrative Medical decision making narrative: Patient is a homeless 18-year-old male with history of polysubstance use presenting today with 2 episodes of hematemesis. No further vomiting in the ED blood work has been reviewed on no electrolyte abnormality no anemia. He met with social work. At this time no further intervention required. He was given Narcan as prepack Discharge Plan Departure Patient Disposition: Home Clinical Impression: Vomiting Instructions: DI for Vomiting -- Adult, Naloxone for Opiate Overdose - WADOH Activity Restrictions/Additional Instructions: *You have been diagnosed with vomiting *What to do: Increase fluids. Stop using drugs *Continue to take medications as directed *Follow up with your primary care provider in 2-3 days or call [phone] *Return to ER if you should have persistent vomiting or any new, worsening or concerning symptoms Prescriptions: No Action hydrocodone-acetaminophen 5-325 mg tablet 1 tab PO BID PRN (Reason: pain) Qty: 30 0RF meloxicam 15 mg tablet 15 mg PO DAILY Qty: 30 1RF escitalopram oxalate [Lexapro] 10 mg tablet 10 mg PO DAILY Qty: 90 1RF clonazepam 1 mg tablet 1 mg PO DAILY PRN (Reason: anxiety) Qty: 30 2RF doxycycline hyclate 100 mg capsule 100 mg PO BID Qty: 14 0RF Referrals: Juanito Aguillon DO [Primary Care Provider] - Stand Alone Forms: Patient Portal/API/Survey
[2024-12-22] MEDS: ONDANSETRON 4 MG ODT SL (12:00)
[2024-12-22 12:07] LABS: Add Manual Diff / Slide Review NO; Basophils Absolute Auto 0 /uL (0-100); Basophils Percent Auto 0.4 % (0-2); Eosinophils Absolute Auto 100 /uL (0-450); Eosinophils Percent Auto 0.6 % (2-4); Hematocrit 38.1 % (41-53); Hemoglobin 12.6 g/dL (13.5-17.5); Lymphocytes Absolute Auto 3500 /uL (1100-4500); Lymphocytes Percent Auto 33.4 % (25-40); Mean Corpuscular Hemoglobin 28.9 PG (26-34); Mean Corpuscular Volume 87.6 fL (80-100); Monocytes Absolute Auto 900 /uL (0-900); Neutrophils Absolute Auto 6000 /uL (1500-7000); Neutrophils Percent Auto 56.6 % (50-75); Platelet Count 187 X10^3/uL (150-400); Red Blood Cell Count 4.35 X10^6/uL (4.5-5.9); Red Cell Distribution Width 14.4 % (11.6-14.8); White Blood Cell Count 10.6 X10^3/uL (4.5-11.0)
[2024-12-22 12:17] LABS: Alanine Aminotransferase 25 IU/L (<50); Albumin 4.1 g/dL (3.5-5.0); Albumin Globulin Ratio 1.6 (1.0-2.8); Alkaline Phosphatase 86 U/L (38-126); Aspartate Aminotransferase 38 IU/L (17-59); BUN Creatinine Ratio 24.6 (6-22); Bilirubin Total 0.5 mg/dL (0.2-1.3); Blood Urea Nitrogen 16 mg/dL (9-20); Calcium 9.3 mg/dL (8.4-10.2); Carbon Dioxide 26 mmol/L (22-32); Chloride 102 mmol/L (98-107); Estimated Glomerular Filt Rate > 60 mL/min (>60); Globulin 2.5 g/dL (1.7-4.1); Glucose 86 mg/dL (70-100); HEMOLYSIS < 15 (0-50); Sodium 136 mmol/L (137-145); Total Protein 6.6 g/dL (6.3-8.2)
[2024-12-22] MEDS: NALOXONE 4 MG NASAL SPRAY MISC (13:59)
[2024-12-22 14:01] VITALS: BP 131/60; PULSE 86; RESP 18; TEMP 37.2; O2SAT 96
--- NOTE | 2024-12-22 14:18 | CM.SWNOTE ---
Addendum entered by MATEO Esqueda 12/22/24 15:02: Post Discharge Note: Pt discharged to the [facility], met with [facility] Pacu Rn and Community Parliamentary Archivist. Per Community Parliamentary Archivist, pt agreeable to [facility] detox placement after their conversation. Pt was completing phone screenings at [facility] and [facility] in [facility]. Community Parliamentary Archivist requested this BARBER STYLIST to fax clinicals to the above facilities for review. BARBER STYLIST sent clinicals for review. ARISTEO Morfin Original Note: ED BARBER STYLIST Assessment Note: Pt is a 18yo male, unhoused in [place], presented to the ED for headache and vomitting. Pt was also noted to be passed out at [facility] this morning, suspected fentanyl intoxication. Pt's Primary Care Provider is Dr. Juanito Aguillon DO and insurance is [employer]. Reviewed chart and discussed with multidisciplinary team pt's medical status and initial discharge needs. Per Raúl, pt has presented to various EDs 5x in the last 2 months for psych/[facility] issues. Per RN, pt has denied a referral to [facility] rehab/detox during triage. BARBER STYLIST entered room to meet with patient, introduced self and role. Pt was found lying in bed, asleep. Pt arousable but answered in grunts, did not want to speak with this BARBER STYLIST at this time. Pt is medically cleared to discharge back to [facility]. BARBER STYLIST recieved a call from Resource and Pacu Rn at [facility]. Stated they have been looking for patient for care coordination. Relayed this message to pt, pt will wait for emergency department coordinator in [facility]. BARBER STYLIST provided some food at discharge and warming assisted resources. Plan: Pt to discharge back to [facility], follow up with [facility] for possible placement. ARISTEO Morfin
== END 2024-12-22 14:02 | disposition home or self-care (01) ==
PROVIDERS: Emergency Provider Emergency Medicine; PCP Family Medicine
DX: R11.10 Vomiting, unspecified (principal); Z59.00 Homelessness unspecified; F11.10 Opioid abuse, uncomplicated
CPT/HCPCS: 36415; 80053; 85025; 99283; A9270

== ENCOUNTER 2025-01-14 00:41 | Emergency (ER) | payer OTHER, SELFPAY ==
[2025-01-14 00:45] VITALS: BP 126/63; PULSE 75; RESP 16; TEMP 36.5; O2SAT 99; BMI 24.4
== END 2025-01-14 06:08 | disposition left against medical advice (07) ==
PROVIDERS: Emergency Provider Emergency Medicine; PCP Family Medicine
DX: R10.9 Unspecified abdominal pain (principal)
CPT/HCPCS: 99281

== ENCOUNTER 2025-03-27 14:23 | Emergency (ER) | payer SELFPAY ==
[2025-03-27] VITALS (26 sets, daily range): BP systolic 117–141; BP diastolic 57–92; PULSE 66–93; RESP 12–20; TEMP 36.1; O2SAT 96–100; BMI 27.1
--- NOTE | 2025-03-27 14:58 | EKG_ITS ---
[address] [address], [place] [address] Test Date: 2025-03-27 Pat Name: Ronan Iverson Department: Room: Gender: Male Client Solutions Specialist: AMISHA : 2005 Requested By: Order Number: [id number] Reading MD: Rogelio Easton MD Measurements Intervals [place] Rate: 64 P: 66 LA: 156 QRS: 67 QRSD: 102 T: 63 QT: 444 QTc: 458 Interpretive Statements Normal sinus rhythm with sinus arrhythmia Electronically Signed On 03-27-2025 15:59:07 PDT by Rogelio Easton MD
[2025-03-27] MEDS: SODIUM CHLORIDE 0.9% 1,000 ML 150 ML IV (15:09)
[2025-03-27 15:10] LABS: Add Manual Diff / Slide Review NO; Basophils Absolute Auto 0 /uL (0-100); Basophils Percent Auto 0.4 % (0-2); Eosinophils Absolute Auto 0 /uL (0-450); Eosinophils Percent Auto 0.4 % (2-4); Hematocrit 41.5 % (41-53); Hemoglobin 13.7 g/dL (13.5-17.5); Lymphocytes Absolute Auto 1200 /uL (1100-4500); Lymphocytes Percent Auto 14.8 % (25-40); Mean Corpuscular HGB Conc 33.1 % (30-36); Mean Corpuscular Hemoglobin 28.5 PG (26-34); Monocytes Absolute Auto 300 /uL (0-900); Monocytes Percent Auto 3.5 % (3-14); Neutrophils Absolute Auto 6300 /uL (1500-7000); Neutrophils Percent Auto 80.9 % (50-75); Platelet Count 217 X10^3/uL (150-400); Red Blood Cell Count 4.83 X10^6/uL (4.5-5.9); Red Cell Distribution Width 13.6 % (11.6-14.8); White Blood Cell Count 7.8 X10^3/uL (4.5-11.0)
[2025-03-27 15:15] LABS: Lactate (Lactic Acid) 0.5 mmol/L (0.7-2.1)
[2025-03-27 15:17] LABS: Acetaminophen < 10 ug/mL (10-30); Alanine Aminotransferase 23 IU/L (<50); Albumin 4.6 g/dL (3.5-5.0); Albumin Globulin Ratio 1.4 (1.0-2.8); Alkaline Phosphatase 116 U/L (38-126); Aspartate Aminotransferase 41 IU/L (17-59); BUN Creatinine Ratio 25.9 (6-22); Bilirubin Total 0.5 mg/dL (0.2-1.3); Bilirubin Unconjugated 0.1 mg/dL (0.0-1.1); Blood Urea Nitrogen 21 mg/dL (9-20); Calcium 10.1 mg/dL (8.4-10.2); Carbon Dioxide 28 mmol/L (22-32); Chloride 102 mmol/L (98-107); Estimated Glomerular Filt Rate > 60 mL/min (>60); Ethanol (ETOH) < 10 mg/dL; Globulin 3.2 g/dL (1.7-4.1); Glucose 93 mg/dL (70-99); HEMOLYSIS < 15 (0-50); Potassium 3.9 mmol/L (3.4-5.1); Salicylate < 1.0 mg/dL (<20); Sodium 139 mmol/L (137-145); Total Protein 7.8 g/dL (6.3-8.2)
--- NOTE | 2025-03-27 15:30 | ED_ITS ---
HPI - Overdose General Chief Complaint: Toxicology Problem Stated Complaint: N/V/ Time Seen by Provider: 03/27/25 15:28 Source: patient Mode of arrival: Wheelchair History of Present Illness HPI Narrative: Patient is a 19-year-old male history of polysubstance abuse admits to smoking fentanyl today but also reports that having abdominal pain nausea vomiting. Uncle reports going in and out of consciousness. Has reported missing 2 days of this methadone clinic. Had some nausea vomiting is arousable Related Data Home Medications Medication Instructions Recorded Confirmed No Known Home Medications 01/14/25 01/14/25 Allergies Allergy/AdvReac Type Severity Reaction Status Date / Time No Known Drug Allergies Allergy Verified 12/22/24 10:35 Patient History Medical History Insomnia Chronic anxiety [place] of face tobacco type: cigarettes and vaping alcohol intake frequency: holidays/special occasions only Exam Initial Vital Signs Initial Vital Signs: Vital Signs Pulse Rate 75 03/27/25 14:46 Blood Pressure 141/92 H 03/27/25 14:46 Pulse Oximetry 99 03/27/25 14:46 GENERAL: 19-year-old male responsive to verbal stimuli sleeping HEENT: Head atraumatic,EOMI, pupils reactive, face symmetric, moist mucous membranes CARDIOVASCULAR: Regular rate and rhythm without murmurs, rubs or gallops. RESPIRATORY: Breath sounds equal bilaterally, no wheezes rales or rhonchi. ABDOMEN: Soft, nontender. Normoactive bowel sounds all 4 quadrants. No guarding or rebound. EXTREMITIES: Normal range of motion, no clubbing or edema. Neurovascularly intact NEUROLOGICAL: Alert and oriented x4.Normal gait and speech. SKIN: Warm, dry, no laceration, no petechiae, no rashes or lesions. Course Orders Ordered: Discontinued Medications Sodium Chloride (Normal Saline 0.9%) 1,000 mls @ 150 mls/hr IV CONT FLORESITA Last Infusion: 03/27/25 15:43 Dose: Infused Documented By: Admin: 03/27/25 15:09 Dose: 150 mls/hr Documented By: KALYAN Naloxone HCl (Naloxone 0.4 Mg/Ml Vial) 0.2 mg IV Q2MIN PRN PRN Reason: Opiate Reversal Last Admin: 03/27/25 19:41 Dose: 0.2 mg Documented By: SIENA Naloxone HCl (Naloxone 4 Mg Nasal [place]) 4 mg MISC DIRECTED ONE Stop: 03/27/25 20:00 Last Admin: 03/27/25 20:08 Dose: 4 mg Documented By: SIENA Vital Signs Vital signs: Vital Signs - 8 hr 03/27/25 15:30 03/27/25 15:30 03/27/25 15:32 Temperature 96.9 F L Pulse Rate 76 Respiratory Rate Blood Pressure 133/81 Pulse Oximetry 100 03/27/25 15:45 03/27/25 15:45 03/27/25 16:00 Temperature Pulse Rate 76 Respiratory Rate 15 Blood Pressure 134/81 130/81 Pulse Oximetry 100 03/27/25 16:00 03/27/25 16:15 03/27/25 16:15 Temperature Pulse Rate 72 73 Respiratory Rate 13 14 Blood Pressure 122/78 Pulse Oximetry 99 99 03/27/25 16:30 03/27/25 16:30 03/27/25 16:45 Temperature Pulse Rate 73 Respiratory Rate 15 Blood Pressure 117/71 127/72 Pulse Oximetry 98 03/27/25 16:45 03/27/25 17:00 03/27/25 17:00 Temperature Pulse Rate 73 76 Respiratory Rate 12 15 Blood Pressure 118/67 Pulse Oximetry 97 99 03/27/25 17:15 03/27/25 17:15 03/27/25 17:30 Temperature Pulse Rate 77 Respiratory Rate 13 Blood Pressure 122/67 139/82 Pulse Oximetry 97 03/27/25 17:30 03/27/25 17:46 03/27/25 17:46 Temperature Pulse Rate 84 81 Respiratory Rate 17 16 Blood Pressure 124/82 Pulse Oximetry 100 100 03/27/25 18:00 03/27/25 18:00 03/27/25 18:15 Temperature Pulse Rate 76 77 Respiratory Rate 14 13 Blood Pressure 126/69 Pulse Oximetry 98 98 03/27/25 18:15 03/27/25 18:30 03/27/25 18:30 Temperature Pulse Rate 80 Respiratory Rate 20 Blood Pressure 119/66 125/65 Pulse Oximetry 98 03/27/25 18:45 03/27/25 18:45 03/27/25 19:00 Temperature Pulse Rate 78 82 Respiratory Rate 17 20 Blood Pressure 126/66 Pulse Oximetry 98 98 03/27/25 19:00 03/27/25 19:15 03/27/25 19:15 Temperature Pulse Rate 86 Respiratory Rate 20 Blood Pressure 119/67 121/65 Pulse Oximetry 03/27/25 19:30 03/27/25 19:30 03/27/25 20:00 Temperature Pulse Rate 82 87 Respiratory Rate 15 17 Blood Pressure 125/62 Pulse Oximetry 98 100 03/27/25 20:30 03/27/25 20:58 03/27/25 20:58 Temperature Pulse Rate 87 93 H Respiratory Rate 19 17 Blood Pressure 126/57 L Pulse Oximetry 97 96 03/27/25 21:00 03/27/25 21:00 Temperature Pulse Rate 93 H Respiratory Rate 19 Blood Pressure 122/58 L Pulse Oximetry 96 MDM - Overdose Lab Data 03/27/25 14:56 03/27/25 14:56 Labs: Lab Results 03/27/25 03/27/25 Range/Units 14:56 20:20 WBC 7.8 (4.5-11.0) X10^3/uL RBC 4.83 (4.5-5.9) X10^6/uL Hgb 13.7 (13.5-17.5) g/dL Hct 41.5 (41-53) % MCV 86.0 (80-100) fL MCH 28.5 (26-34) PG MCHC 33.1 (30-36) % RDW 13.6 (11.6-14.8) % Plt Count 217 (150-400) X10^3/uL Neut % (Auto) 80.9 H (50-75) % Lymph % (Auto) 14.8 L (25-40) % [place] % (Auto) 3.5 (3-14) % Eos % (Auto) 0.4 L (2-4) % Baso % (Auto) 0.4 (0-2) % Neut # (Auto) 6300 (1700-3766) /uL Lymph # (Auto) 1200 (2330-6139) /uL [place] # (Auto) 300 (0-900) /uL Eos # (Auto) 0 (0-450) /uL Baso # (Auto) 0 (0-100) /uL Sodium 139 (137-145) mmol/L Potassium 3.9 (3.4-5.1) mmol/L Chloride 102 (98-107) mmol/L Carbon Dioxide 28 (22-32) mmol/L BUN 21 H (9-20) mg/dL Creatinine 0.81 (0.66-1.25) mg/dL Estimated GFR > 60 (>60) mL/min BUN/Creatinine Ratio 25.9 H (6-22) Glucose 93 (70-99) mg/dL Lactate 0.5 L (0.7-2.1) mmol/L Calcium 10.1 (8.4-10.2) mg/dL Total Bilirubin 0.5 (0.2-1.3) mg/dL Conjugated Bilirubin 0.0 (0.0-0.3) md/dL Unconjugated Bilirubin 0.1 (0.0-1.1) mg/dL AST 41 (17-59) IU/L ALT 23 (<50) IU/L Alkaline Phosphatase 116 (38-126) U/L Total Protein 7.8 (6.3-8.2) g/dL Albumin 4.6 (3.5-5.0) g/dL Globulin 3.2 (1.7-4.1) g/dL Albumin/Globulin Ratio 1.4 (1.0-2.8) Lipase 109 (23-300) U/L Salicylates < 1.0 (<20) mg/dL U Opiates 300ng/mL cut Negative (Negative) Ur Oxycodone Screen Negative (Negative) Urine Methadone Screen Positive H (Negative) Acetaminophen < 10 (10-30) ug/mL Ur Barbiturates Screen Negative (Negative) U Tricyclic Antidepress Negative (Negative) Ur Phencyclidine Scrn Negative (Negative) Ur Amphetamines Screen Positive H (Negative) U Methamphetamines Scrn Positive H (Negative) Ur MDMA Scrn (Ecstasy) Positive H (Negative) U Benzodiazepines Scrn Negative (Negative) Urine Cocaine Screen Negative (Negative) U Marijuana (THC) Screen Negative (Negative) Urine pH Normal (Normal) Urine Specific [place] Normal (Normal) Ethyl Alcohol < 10 ( - 10) mg/dL Ur Creatinine Normal (Normal) Urine Dip Bedside Urine Glucose Negative Bedside Urine Bilirubin - Negative Bedside Urine Ketone +/- 5 Urine Specific [place] 1.010 Bedside Urine Occult Blood - Negative Bedside Urine pH 7 Bedside Urine Protein - Negative Bedside Urine Urobilinogen - Negative Bedside Urine Nitrite - Negative Bedside Urine Leukocytes - Negative Esterase Imaging Data CT scan - abdomen/pelvis: Radiologist's Impression: PROCEDURE: CT ABDOMEN PELVIS W CON INDICATIONS: ab pain TECHNIQUE: After the administration of intravenous contrast, axial sections acquired from the lung bases to the pubic symphysis. Coronal and sagittal reformats were performed. For radiation dose reduction, the following was used: automated exposure control, adjustment of mA and/or kV according to patient size. COMPARISON: None. FINDINGS: Image quality: Diagnostic. Lower Chest: No significant findings. ABDOMEN: Liver: No solid mass. Gallbladder: No radiopaque gallstones or wall thickening. Biliary ducts: No biliary dilation. Pancreas: No ductal dilation. Spleen: Size is within normal limits. Adrenal Glands: No adrenal nodules. Kidneys and Ureters: No hydronephrosis. No solid mass. No complex renal cystic lesion which requires follow up. Stomach and Bowel: Normal colonic caliber, without significant wall thickening. Very large fecal load. Mobile cecum. Appendix not identified. No secondary signs of acute appendicitis. Small bowel is nondilated. Peritoneum: No abnormal intraperitoneal fluid. No free air. Ventral Wall: No significant ventral hernia. Abdominal Nodes: No retroperitoneal or mesenteric adenopathy by size criteria. Vessels: Aorta and inferior vena cava are normal in size. PELVIS: Pelvic Organs: Unremarkable. Bladder: No bladder wall thickening, accounting for underdistention. Pelvic Nodes: No enlarged lymph nodes. Miscellaneous: No inguinal hernias are seen. Bones: No aggressive osseous abnormality. Mild chronic T11 and T12 compressions, likely posttraumatic. IMPRESSION: 1. Very large fecal load without obstruction identified. 2. Incidental note made of mobile cecum. 3. Appendix not visualized. No secondary signs of acute appendicitis. [facility] Narrative Medical decision making narrative: Patient 19-year-old male presenting today with abdominal pain nausea vomiting history of polysubstance use reports some going in and out of consciousness. He is arousable to verbal stimuli no need for Narcan at this time. Blood work reviewed, no leukocytosis no anemia Electrolytes stable Lactate 0.5 Bilirubin liver enzymes within normal limits Tylenol salicylate alcohol level within normal limit CT negative for any kind of obstruction does show large fecal load or other abnormality Patient continues to be sleepy he was mildly arousable CO2 rises up to 50-80. Narcan 0.2 mg given IV at 7:08 p.m. 1954 patient found smoking fentanyl in bathroom Patient just received Narcan less than 1 hour ago found to be smoking fentanyl he is still awake and alert all belongings have been confiscated. Patient monitored for another 1 hour remains awake alert appropriate okay to discharge. Also given prepack of Narcan Naloxone at Discharge Meets criteria for naloxone at discharge?: Yes Discharge Plan Departure Patient Disposition: Home Clinical Impression: Overdose opiate Instructions: Naloxone for Opiate Overdose - WADOH Activity Restrictions/Additional Instructions: Stop using fentanyl Use Narcan as needed Return to ED if you should have worsening problems Blood work and CT overall reassuring no cause for your nausea vomiting and abdominal pain Prescriptions: No Action No Known Home Medications Referrals: Juanito Aguillon DO [Primary Care Provider] - Stand Alone Forms: Patient Portal/API/Survey
[2025-03-27 15:40] LABS: Lipase 109 U/L (23-300)
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
[2025-03-27] MEDS: NALOXONE 0.4 MG/ML VIAL 0.2 MG IV (19:41)
[2025-03-27] MEDS: NALOXONE 4 MG NASAL SPRAY MISC (20:08)
[2025-03-27 20:46] LABS: UR Morphine/Opiate cutoff 300 Negative (Negative); Ur Creatinine Normal (Normal); Ur Specific Gravity Normal (Normal); Urine Amphetamines Positive (Negative); Urine Barbiturates Negative (Negative); Urine Benzodiazepines Negative (Negative); Urine Cocaine Negative (Negative); Urine MDMA Positive (Negative); Urine Methadone Positive (Negative); Urine Phencyclidine Negative (Negative); Urine Tetrahydrocannabinol Negative (Negative); Urine pH Normal (Normal)
[2025-03-27 20:47] LABS: Urine Methamphetamines Positive (Negative); Urine Oxycodone Negative (Negative); Urine Tricyclic Antidepressant Negative (Negative)
--- NOTE | 2025-03-27 21:18 | PC.NURSE ---
pt awake and alert able to stand and walk without assistance
== END 2025-03-27 21:19 | disposition home or self-care (01) ==
PROVIDERS: Emergency Medicine; Emergency Provider Family Medicine; PCP Family Medicine
DX: T40.601A Poisoning by unspecified narcotics, accidental (unintentional), initial encounter (principal); R11.2 Nausea with vomiting, unspecified
CPT/HCPCS: 36415; 74177; 80053; 80076; 80305; 80320; 80329; 81003; 83605; 83690; 85025; 93005; 93010; 96361; 96374; 99284; A9270; G0480; J2310

== ENCOUNTER 2025-05-01 03:21 | Emergency (ER) | payer SELFPAY ==
[2025-05-01 03:25] VITALS: BP 143/82; PULSE 115; RESP 24; TEMP 36.2; O2SAT 100; BMI 25.7
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
[2025-05-01] MEDS: PROPARACAINE 0.5% OPHTH SOL 1 DROPS EYE-BOTH (03:52)
[2025-05-01] MEDS: FLUORESCEIN 1 MG STRIP EYE-BOTH (03:55)
--- NOTE | 2025-05-01 04:14 | PC.NURSE ---
Per Dr. Obregon- irrigate each eye with 1000ml NS. Pt did not want to complete the full 1000ml. 00ml NS per eye completed. ph post irrigation is [address] Obregon made aware.
== END 2025-05-01 04:44 | disposition home or self-care (01) ==
PROVIDERS: Emergency Provider Emergency Medicine; PCP Family Medicine
DX: H10.9 Unspecified conjunctivitis (principal); T59.3X3A Toxic effect of lacrimogenic gas, assault, initial encounter; Z59.00 Homelessness unspecified
CPT/HCPCS: 99282

== ENCOUNTER 2025-06-12 09:18 | Emergency (ER) | payer OTHER, SELFPAY ==
[2025-06-12 09:26] VITALS: BP 125/58; PULSE 100; RESP 18; TEMP 36.6; O2SAT 97; BMI 21.7
--- NOTE | 2025-06-12 09:39 | PC.NURSE ---
Patient got up and walked out of the room and the department without saying anything to any of the staff.
--- NOTE | 2025-06-12 09:42 | PC.NURSE ---
Pt in moya walking towards door, asked pt to wait for MD to come to room. Pt left before MD was able to do assessment.
--- NOTE | 2025-06-20 13:34 | ED.SKABFB ---
HPI - Skin/Abscess/Foreign Bdy General Chief complaint: Skin/Abscess/Foreign Body Stated complaint: Rash on groin area x 3 weeks Time Seen by Provider: 06/12/25 09:39 Source: patient Mode of arrival: Ambulatory Limitations: no limitations History of Present Illness HPI narrative: never saw Related Data Home Medications ?Medication ?Instructions ?Recorded ?Confirmed No Known Home Medications 01/14/25 01/14/25 Allergies Allergy/AdvReac Type Severity Reaction Status Date / Time No Known Drug Allergies Allergy Verified 05/01/25 03:25 Patient History Medical History Insomnia Chronic anxiety [place] of face tobacco type: cigarettes and vaping alcohol intake frequency: holidays/special occasions only Exam Initial Vital Signs Initial Vital Signs: Vital Signs Temperature 97.9 F 06/12/25 09:26 Pulse Rate 100 H 06/12/25 09:26 Respiratory Rate 18 06/12/25 09:26 Blood Pressure 125/58 L 06/12/25 09:26 Pulse Oximetry 97 06/12/25 09:26 Oxygen Delivery Method Room Air 06/12/25 09:26 Discharge Plan Departure Patient Disposition: Left Without Being Seen Clinical Impression: Patient left after triage Prescriptions: No Action No Known Home Medications
== END 2025-06-12 09:39 | disposition left against medical advice (07) ==
PROVIDERS: Emergency Provider Family Medicine; PCP Family Medicine
DX: Z53.21 Procedure and treatment not carried out due to patient leaving prior to being seen by health care provider (principal)
CPT/HCPCS: 99281